=== PATIENT | female | born 1980 | race Caucasian/White ===

== ENCOUNTER → 2023-07-08 07:34 | Outpatient (REF) | payer BC, SELFPAY | LOC: PNTC 07:34 | PROVIDERS: ATTENDING PHYSICIAN Obstetrics & Gynecology | DX: O09.529 Supervision of elderly multigravida, unspecified trimester (principal) | CPT/HCPCS: 59025; 76815 ==

== ENCOUNTER 2023-07-13 21:29 | Observation (INO) | payer BC, SELFPAY ==
[2023-07-13 21:38] VITALS: BMI 33.5
[2023-07-13 22:02] VITALS: BP 126/87
== END 2023-07-13 23:15 | disposition home or self-care (01) ==
LOC: LDRP 21:29
PROVIDERS: ADMITTING PHYSICIAN Obstetrics & Gynecology
DX: R45.851 Suicidal ideations (principal); O26.853 Spotting complicating pregnancy, third trimester; Z3A.36 36 weeks gestation of pregnancy; O98.813 Other maternal infectious and parasitic diseases complicating pregnancy, third trimester; B37.49 Other urogenital candidiasis; K63.8219 Small intestinal bacterial overgrowth, unspecified; J45.909 Unspecified asthma, uncomplicated; O99.513 Diseases of the respiratory system complicating pregnancy, third trimester; O99.283 Endocrine, nutritional and metabolic diseases complicating pregnancy, third trimester; E28.2 Polycystic ovarian syndrome; O99.343 Other mental disorders complicating pregnancy, third trimester; F41.9 Anxiety disorder, unspecified; F32.A Depression, unspecified; Z87.440 Personal history of urinary (tract) infections; Z59.86 Financial insecurity; Z59.87 Material hardship due to limited financial resources, not elsewhere classified; Z91.410 Personal history of adult physical and sexual abuse; Z62.819 Personal history of unspecified abuse in childhood
CPT/HCPCS: G0378

== ENCOUNTER → 2023-08-04 09:36 | Outpatient (REF) | payer BC, SELFPAY | LOC: PNTC 09:36 | PROVIDERS: ATTENDING PHYSICIAN Obstetrics & Gynecology | DX: O09.529 Supervision of elderly multigravida, unspecified trimester (principal) | CPT/HCPCS: 36415; 59025; 76815 ==

== ENCOUNTER 2023-08-06 20:18 | Inpatient (IN) | payer BC, SELFPAY ==
[2023-08-06 22:26] VITALS: BMI 34.0
[2023-08-06 22:32] VITALS: BP 127/92
[2023-08-06] MEDS: CYTOTEC 50 MICROGRAM VAG (23:02)
[2023-08-06 23:16] LABS: % Basophils 0.3 % (0-2); % Eosinophils 0.4 % (0-6); % Immature Granulocytes 0.5 % (0-0.5); % Lymphocytes 21.3 % (20.5-51.1); % Monocytes 6.2 % (1.7-9.3); % Neutrophils 71.3 % (42.2-75.2); Absolute Immature Granulocytes 0.1 10^3/uL (0-0.05); Absolute Lymphocytes 2.2 10^3/uL (1.2-3.4); Absolute Monocytes 0.6 10^3/uL (0.1-0.6); Absolute Neutrophils 7.3 10^3/uL (1.4-6.5); Hematocrit 37.3 % (37.0-47.0); Hemoglobin 13.1 g/dL (12.0-16.0); Mean Corp Hgb Conc. 35.1 g/dL (33.0-37.0); Mean Corpuscular Hgb 32.5 pg (27.0-31.0); Mean Corpuscular Volume 92.6 fL (81.0-99.0); Mean Platelet Volume 10.9 fL (7.4-10.4); Nucleated Red Blood Cells % 0 %; Platelet Count 237 10^3/uL (130-400); Red Blood Cell Count 4.03 10^6/uL (4.20-5.40); Red Cell Dist. Width 12.3 % (11.5-14.5); White Blood Cell Count 10.3 10^3/uL (4.8-10.8)
[2023-08-07] MEDS: CYTOTEC 25 MICROGRAM PO (03:12)
[2023-08-07] MEDS: CYTOTEC PO ×3 (03:15→10:45)
[2023-08-08] MEDS: MORPHINE SULFATE 2 MG IV (01:43)
[2023-08-08] MEDS: BENADRYL 25 MG IV (06:25)
[2023-08-08] MEDS: PITOCIN 30 UNITS/NSS 500 ML IV (12:24)
[2023-08-08] MEDS: FENTANYL/BUPIVACAINE 100 EPIDURAL (17:08)
[2023-08-08] MEDS: SUBLIMAZE 100 MCG EPIDURAL (17:08)
[2023-08-09] MEDS: FENTANYL/BUPIVACAINE 100 EPIDURAL (00:33)
[2023-08-09] MEDS: ANCEF 10 IV (07:58)
[2023-08-09] MEDS: TYLENOL 1000 MG PO (07:58)
[2023-08-09] MEDS: BICITRA 30 ML PO (07:58)
[2023-08-09] MEDS: TRANEXAMIC ACID 100 IV (09:52)
[2023-08-09] MEDS: METHERGINE INJECTION 0.200000000000000011 MG IM (10:01)
[2023-08-09] MEDS: PITOCIN 30 UNITS/NSS 500 ML IV (13:13)
[2023-08-09] MEDS: TORADOL 15 MG IV ×2 (14:45→21:03)
[2023-08-10 02:09] LABS: Urine Albumin Negative (Neg - Trace); Urine Bilirubin Negative (Negative); Urine Character Clear (Clear); Urine Color Yellow; Urine Glucose 2+ (Negative); Urine Ketone Negative (Negative); Urine Leukocyte Negative (Negative); Urine Nitrite Negative (Negative); Urine Occult Blood 2+ (Negative); Urine Urobilinogen Negative (Neg - 1+)
[2023-08-10 02:18] LABS: Urine Bacteria Few (Negative); Urine Red Blood Cell 0-2 /HPF (0-2); Urine Squamous Cell 0-2 /LPF (Few); Urine White Cell 0-2 /HPF (0-5)
[2023-08-10] MEDS: TORADOL 15 MG IV ×2 (03:03→09:15)
[2023-08-10 05:36] LABS: Hematocrit 25.4 % (37.0-47.0); Hemoglobin 8.8 g/dL (12.0-16.0); Mean Corp Hgb Conc. 34.6 g/dL (33.0-37.0); Mean Corpuscular Volume 95.1 fL (81.0-99.0); Mean Platelet Volume 10.5 fL (7.4-10.4); Platelet Count 175 10^3/uL (130-400); Red Blood Cell Count 2.67 10^6/uL (4.20-5.40); Red Cell Dist. Width 12.7 % (11.5-14.5); White Blood Cell Count 13.7 10^3/uL (4.8-10.8)
[2023-08-10] MEDS: SENOKOT-S 1 TABLET PO (09:15)
[2023-08-10] MEDS: MOTRIN 600 MG PO ×2 (15:31→21:33)
[2023-08-10] MEDS: TYLENOL 650 MG PO ×2 (15:31→21:33)
--- NOTE | 2023-08-10 16:09 | W.PN.ANS.POP ---
Anesthesia Post Operative
- Anesthesia Post Op Note
Vital Signs Stable-See Nursing Note: Yes
Airway Patent: Yes
Adequate Pain Control: Yes
Change in Mental Status: No
Current Postoperative Nausea & Vomiting: No
Anesthesia Complications: No
General Anesthetic Recall: No
Unplanned Admission: No
Post Op Hydration Adequate: Yes
[2023-08-10] MEDS: FEOSOL 325 MG PO (21:33)
[2023-08-11] MEDS: TYLENOL 650 MG PO ×4 (03:31→22:32)
[2023-08-11] MEDS: MOTRIN 600 MG PO ×4 (03:32→22:33)
[2023-08-11] MEDS: SENOKOT-S 1 TABLET PO (07:36)
[2023-08-11] MEDS: FEOSOL 325 MG PO ×2 (07:36→20:02)
[2023-08-11 17:41] LABS: Syphilis/T. pallidum Ab Reflex Negative (Negative)
[2023-08-12] MEDS: MOTRIN 600 MG PO ×2 (04:50→11:09)
[2023-08-12] MEDS: TYLENOL 650 MG PO ×2 (04:50→11:09)
[2023-08-12] MEDS: SENOKOT-S 1 TABLET PO (09:04)
[2023-08-12] MEDS: FEOSOL 325 MG PO (09:04)
[2023-08-12] MEDS: M-M-R II 0.5 ML SC (09:07)
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
--- NOTE | 2023-08-12 14:33 | CM ---
CM met with first time parents at bedside
Parents have named their son Shreyas
Parents live alone in home and confirmed address
Mom reporting she plans breast and bottle feed . Has a rental pump and will be having a pump delivered.
Mom reports she will have a brewery pumper available during her post- period
Mom reports she has all supplies for including car seat
Parents plan to take baby Shreyas to [facility] for care and will schedule his appointment
CM will be available for any d/c needs
--- NOTE | 2023-08-13 09:17 | W.DS.TRANS ---
DC Summary - [employer]
-
Discharge Instructions:
Discharge Diagnosis/Procedures term , delivered; S/p PLTCS; anemia
Instructions:
Stand-Alone Forms: LDRP Delivery
Changes to Home Medications: No
Discharge Medications:
DC Medications w/original date entered in [facility]
prenat.vits,whitney,vcy-cblm-lnovr 1 tab PO DAILY Supplement 07/13/23
acetaminophen 325 mg tablet 650 mg PO Q4HPRN PRN mild pain #0 tabs 08/12/23
ferrous sulfate 325 mg (65 mg iron) tablet (FeroSul) 325 mg PO BID #0 tabs 08/12/23
ibuprofen 600 mg tablet 600 mg PO Q6HPRN PRN cramps #30 tabs 08/12/23
oxycodone 5 mg capsule 5 mg PO Q4H PRN severe pain #7 caps 08/12/23
sennosides 8.6 mg-docusate sodium 50 mg tablet (Stool Softener-Stimulant Laxative) 1 tab PO DAILYPRN PRN constipation #0 tabs 08/12/23
Home Medication Changes
Pending Results: No
Total time spent discharging patient (in min): 20
== END 2023-08-12 14:37 | disposition home or self-care (01) | DRG 787 ==
LOC: LDRP 20:18
PROVIDERS: Obstetrics & Gynecology; ADMITTING PHYSICIAN Obstetrics & Gynecology; CONSULT PHYSICIAN Obstetrics & Gynecology
PROC: 3E0134Z Introduction of Serum, Toxoid and Vaccine into Subcutaneous Tissue, Percutaneous Approach (ICD-10-PCS; 2023-08-06)
PROC: 10D00Z1 Extraction of Products of Conception, Low, Open Approach (ICD-10-PCS; 2023-08-06)
PROC: 10H07YZ Insertion of Other Device into Products of Conception, Via Natural or Artificial Opening (ICD-10-PCS; 2023-08-06)
PROC: 3E0P7VZ Introduction of Hormone into Female Reproductive, Via Natural or Artificial Opening (ICD-10-PCS; 2023-08-06)
DX: O36.63X0 Maternal care for excessive fetal growth, third trimester, not applicable or unspecified (principal); O72.1 Other immediate postpartum hemorrhage; O77.0 Labor and delivery complicated by meconium in amniotic fluid; O62.1 Secondary uterine inertia; Z37.0 Single live birth; Z14.1 Cystic fibrosis carrier; O99.02 Anemia complicating childbirth; O99.344 Other mental disorders complicating childbirth; O99.214 Obesity complicating childbirth; Z3A.40 40 weeks gestation of pregnancy; O48.0 Post-term pregnancy
CPT/HCPCS: 88307; 76816; 81003; 81015; 85025; 85027; 86780; 86850; 86900; 86901; 87086; 90707